=== PATIENT | female | born 1940 | race Caucasian/White ===

== ENCOUNTER 2017-05-20 10:46 | Outpatient (CLI) | payer OTHER | END 2017-05-20 10:47 | LOC: CARD 10:46 | PROVIDERS: ATTEND Nurse Practitioner | DX: I48.2 Chronic atrial fibrillation (principal); I25.10 Atherosclerotic heart disease of native coronary artery without angina pectoris; I67.89 Other cerebrovascular disease | CPT/HCPCS: G0463 ==